=== PATIENT | male | born 1970 | race Caucasian/White ===

== ENCOUNTER → 2023-05-25 10:18 | Outpatient (BNVA) | payer OTHER, SELFPAY | PROVIDERS: Referring Provider Family Medicine; Visit Provider Surgery | DX: Z12.11 Encounter for screening for malignant neoplasm of colon (principal) | CPT/HCPCS: 99203 ==

== ENCOUNTER 2023-08-19 10:01 | Day surgery (SDC) | payer OTHER, SELFPAY ==
--- NOTE | 2023-08-19 10:12 | W.PM.OPSFHP ---
Same Day Surgery H&P Indication for Procedure/HPI DATE OF PROCEDURE: August 19, 2023 CHIEF COMPLAINT/INDICATIONFOR SURGICAL PROCEDURE: need fror screening colonoscopy PREOP DIAGNOSIS: need for screening colonoscopy PLANNED PROCEDURE: Operation Date: 08/19/23 11:15 Proposed Procedures p 72590 colon G0121 screen colon A risk Z12.11(Not Applicable) - Solitario Dooley MD Medications/Allergies* Home Medications Medication Instructions Recorded Confirmed Type cholecalciferol (vitamin D3) 50 50 mcg PO DAILY 05/25/23 08/18/23 History mcg (2,000 unit) capsule ibuprofen 200 mg tablet 200 mg PO Q6H PRN Pain 08/18/23 08/18/23 History Allergies/Adverse Reactions Allergy/AdvReac Type Severity Reaction Status Date / Time Penicillins Allergy had when a Verified 08/18/23 09:43 child Pertinent History/Comorbid Conditions* Social History Smoking and tobacco/nicotine status: current every day tobacco/nicotine user cigarettes Alcohol intake: current Alcohol intake frequency: holidays/special occasions only Pertinent Exam Findings alert, oriented x 3, clear to auscultation bilaterally and regular rate & rhythm Recommendations Surgery/Procedure today Coding Level of Care Code Acute Code for Chg Ed
[2023-08-19] MEDS: sodium chloride 0.9% 1,000 ML 30 ML IV (10:19)
[2023-08-19 10:23] VITALS: BP 119/86; PULSE 67; RESP 18; TEMP 36.3; O2SAT 95
--- NOTE | 2023-08-19 10:23 | ANES.PREANE2 ---
Pre-Anesthetic Assessment Height/Weight: Height 1.91 m Weight 72.575 kg Preop Diagnosis: need for screening colonoscopy Operation Date: 08/19/23 11:15 Proposed Procedures p 29925 colon G0121 screen colon A risk Z12.11(Not Applicable) - Solitario Dooley MD Was Beta Mary taken within 24 hours: N/A Was Clonidine taken within 24 hours: N/A Last intake: Intake Last Liquid Date 08/18/23 Last Liquid Time 23:00 Last Solid Date 08/17/23 Social Tobacco and No alcohol 1 pack(s) per day Exam alert, oriented x 3, clear to auscultation bilaterally and regular rate & rhythm Airway Submandibular: within normal limits Cervical ROM: within normal limits Mallampati: Class II Dentition: full History/ROS No significant history except as noted and No significant complaints Pulmonary None reported CV/HEM None reported None reported Hepatic None reported GI None reported Metabolic None reported Musc/skel None reported Neuropsych None reported Anesthetic Plan ASA status: 2 Anesthesia: Anesthesia Evaluation and MAC Risk of > 500 ml blood loss (7ml/kg in children): No Medications/Allergies Home Medications Medication Instructions Recorded Confirmed Last Taken Type cholecalciferol (vitamin D3) 50 50 mcg PO DAILY 05/25/23 08/18/23 08/18/23 History mcg (2,000 unit) capsule ibuprofen 200 mg tablet 200 mg PO Q6H PRN Pain 08/18/23 08/18/23 08/18/23 History Allergies Allergy/AdvReac Type Severity Reaction Status Date / Time Penicillins Allergy had when a Verified 08/18/23 09:43 child Current Medications Generic Name Dose Route Start Last Admin Trade Name Freq PRN Reason Stop Dose Admin Sodium Chloride 1,000 mls @ 30 mls/hr 08/19/23 10:15 08/19/23 10:19 Sodium Chloride 0.9% IV 08/20/23 10:14 30 mls/hr .Q24H RONI Administration PFSH Anesthesia Social History (Updated 05/25/23 @ 10:49 by VIRGINIA Petit) Smoking and tobacco/nicotine status: current every day tobacco/nicotine user cigarettes Alcohol intake: current Alcohol intake frequency: holidays/special occasions only Data Anesthesia Cardiac Studies: No Data to Display
--- NOTE | 2023-08-19 11:25 | ANE.PACU2 ---
Inpatient post-anesthesia follow up: Airway intact: Yes Vital signs: Temperature 97.4 F Pulse Rate 74 Respiratory Rate 18 Blood Pressure 107/76 Pulse Oximetry 99 Oxygen Delivery Me thod Nasal Cannula Oxygen Flow Rate 2 Fraction of Inspir ed Oxygen Hydration adequate: Yes Nausea and vomiting: No Pain level: 1 Mental status: Baseline
[2023-08-19 11:27] VITALS: BP 107/76; PULSE 74; RESP 18; TEMP 36.3; O2SAT 99
[2023-08-19 11:40] VITALS: BP 117/89; PULSE 73; RESP 18; O2SAT 99
== END 2023-08-19 11:56 | disposition home or self-care (01) ==
PROVIDERS: Visit Provider Surgery
PROC: 0DJD8ZZ Inspection of Lower Intestinal Tract, Via Natural or Artificial Opening Endoscopic (ICD-10-PCS; CPT 45378; principal; 2023-08-19 11:15)
DX: Z12.11 Encounter for screening for malignant neoplasm of colon (principal); D12.5 Benign neoplasm of sigmoid colon; K62.1 Rectal polyp
CPT/HCPCS: 45380; 45385; 88305; J2704; J7030

== ENCOUNTER → 2023-09-01 11:05 | Outpatient (BNVA) | payer OTHER, SELFPAY | PROVIDERS: Visit Provider Surgery | DX: Z09 Encounter for follow-up examination after completed treatment for conditions other than malignant neoplasm (principal) | CPT/HCPCS: 99213 ==